=== PATIENT | female | born 1950 | race Caucasian/White ===

== ENCOUNTER 2019-06-10 11:24 | Day surgery (SDC) | payer MEDICARE, BC ==
[~2019-06-10] VITALS: Ht 162.6 cm; Wt 90.3 kg
[~2019-06-10 11:24] MED LIST: CIPR500 PO; ENABLEX PO; KAPIDEX PO; PRAV20 PO; [UNRECOGNIZED DRUG - OTHER] PO
[2019-06-10] MEDS ORDERED: DEXILANT60 MG (12:01)
[2019-06-10] MEDS ORDERED: ZOLP10 (12:02)
[2019-06-10] MEDS ORDERED: MYRBETRIQ25 MG (12:02)
[2019-06-10] MEDS ORDERED: VALA500 (12:02)
--- NOTE | 2019-06-10 12:34 | NUR ---
06/10/19 1233 Catia Swenson CHECK ON PATIENT IN PRE OP. WARM BLANKET PROVIDED. VSS. CALL LIGHT WITHIN REACH, WILL CONTINUE TO MONITOR.
== END 2019-06-10 13:34 | disposition home or self-care (01) ==
LOC: ORSCSDS 11:24
PROVIDERS: Internal Medicine Gastroenterology
PROC: 0DB68ZX Excision of Stomach, Via Natural or Artificial Opening Endoscopic, Diagnostic (ICD-10-PCS; principal; 2019-06-10 15:15)
PROC: 0DB98ZX Excision of Duodenum, Via Natural or Artificial Opening Endoscopic, Diagnostic (ICD-10-PCS; principal; 2019-06-10 15:15)
DX: R10.13 Epigastric pain (principal); K21.9 Gastro-esophageal reflux disease without esophagitis; K31.7 Polyp of stomach and duodenum; K44.9 Diaphragmatic hernia without obstruction or gangrene; R19.7 Diarrhea, unspecified; R14.0 Abdominal distension (gaseous); J45.909 Unspecified asthma, uncomplicated; Z87.891 Personal history of nicotine dependence; Z79.899 Other long term (current) drug therapy
CPT/HCPCS: 88305; 88342; J2704; J7120

== ENCOUNTER 2020-12-21 12:52 | Day surgery (SDC) | payer MEDICARE, BC ==
[~2020-12-21] VITALS: Ht 162.6 cm; Wt 87.0 kg
[~2020-12-21 12:52] MED LIST changes: +DEXILANT60 MG; +MYRBETRIQ25 MG; +VALA500; +ZOLP10
[2020-12-21] MEDS ORDERED: EPIPEN0.3 MG/0.3 ×2 (13:37→13:38)
[2020-12-21] MEDS ORDERED: EZET10 PO (13:38)
[2020-12-21] MEDS ORDERED: FAMO40 (13:38)
[2020-12-21] MEDS ORDERED: PROLIA60 MG/1 ML SQ (13:39)
== END 2020-12-21 15:24 | disposition home or self-care (01) ==
LOC: ORSCSDS 12:52
PROVIDERS: Surgery
PROC: 0DBH8ZX Excision of Cecum, Via Natural or Artificial Opening Endoscopic, Diagnostic (ICD-10-PCS; principal; 2020-12-21 14:15)
PROC: 0DBP8ZX Excision of Rectum, Via Natural or Artificial Opening Endoscopic, Diagnostic (ICD-10-PCS; principal; 2020-12-21 14:15)
DX: Z12.11 Encounter for screening for malignant neoplasm of colon (principal); K62.1 Rectal polyp; E78.00 Pure hypercholesterolemia, unspecified
CPT/HCPCS: 88305; J2405; J2704; J7120